=== PATIENT | male | born 1955 | race Caucasian/White ===

== ENCOUNTER 2019-08-06 13:20 | Outpatient (CLI) | payer OTHER ==
[2019-08-06 11:31] LABS: Estimated GFR-MDRD - POC Greater than 90
[~2019-08-06 13:20] MED LIST: Iopamidol-370 76% 500 ML 1 ML ONE
--- NOTE | 2019-08-06 16:26 | CT ---
CT OF CHEST AND ABDOMEN AND PELVIS PERFORMED WITH CONTRAST ENHANCEMENT: 08/06/19 HISTORY: Weight loss, acute low back pain. The lungs are clear of any infiltrative process. There is some reticular changes in the lung bases, p robably on the basis of scar. There are no pulmonary nodules identified or pleural effusions. There is no significant mediastinal or hilar lymphadenopathy seen. No significant axillary adenopathy . CT OF THE ABDOMEN PERFORMED WITH CONTRAST ENHANCEMENT: There is a nodular pleural based density lying along the right hemidiaphragm. The CT Hounsfield unit numbers are in the fluid density range. It measures approximately 1.5 cm in size, felt to be an incid ental finding given the CT Hounsfield unit numbers. The liver, spleen, pancreas, and gallbladder mary ons appear unremarkable. Right and left adrenal glands and right and left kidneys are normal in size. There is no significant periaortic or mesenteric lymphadenopathy. CT OF PELVIS PERFORMED WITH CONTRAST ENHANCEMENT: The bladder is distended. There is no significant pelvic lymphadenopathy or mass. Review of osseous structures show mild arthritic changes of the thoracic and lumbar spine. The right psoas muscle is slightly atrophic as compared to the left. There are arthritic changes of the hips. IMPRESSION: No evidence for any evidence for neoplasm. Incidental findings as noted above. POS: [facility]
== END 2019-08-06 13:21 | disposition home or self-care (01) ==
LOC: BICCT 13:20
PROVIDERS: ATTEND Neurological Surgery
DX: M54.5 Low back pain (principal); R63.4 Abnormal weight loss; M21.371 Foot drop, right foot
CPT/HCPCS: 71260; 74177; 82565; Q9967

== ENCOUNTER 2019-08-28 07:12 | Day surgery (SDC) | payer OTHER ==
[2019-08-25 11:50] VITALS: BMI 28.7
[2019-08-28 08:03] VITALS: BP 135/83; TEMP 97.2
[2019-08-28] MEDS ORDERED: FLU VACC QS2019-20(6MOS UP)/PF 60 MCG/0.5 ML SYRINGE IM ONE (09:00)
--- NOTE | 2019-08-28 10:16 | RAD ---
Fluoroscopically guided lumbar puncture: DATE: 08/28/2019 HISTORY: 64-year-old male with neuropathy, with foot drop, lower extremity weakness. 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 15 mL CSF requested by ordering physician. TECHNIQUE: Signed informed consent obtained. Patient placed prone on fluoroscopy table. Skin of lower back prepp ed and draped in usual sterile fashion. Right L2-3 paramedian approach. 25-gauge needle used to apply buffered lidocaine. 22-gauge needle advanced under brief, intermittent fluoroscopy into spinal canal. Upon return of clear CSF, a total of 15 mL of CSF was collected in 4 vials: 3 mL in first vial, and 4 mL in each of the remaining 3 vials. Spinal needle was removed. Patient tolerated procedu re well. No complications. Total fluoroscopy time: 0.9 minutes. Dose area product: 55.8 uGy*m^2. IMPRESSION: Successful lumbar puncture, with collection of 15 mL of clear cerebrospinal fluid, sent to laboratory for analysis.
[2019-08-28 10:19] LABS: Color Of CSF Supernatant COLORLESS (Colorless); Tube # 2; Unspun CSF Color COLORLESS (Colorless)
[2019-08-28 10:32] LABS: CSF, Glucose 215 mg/dl (40-70); CSF, Protein 125 mg/dL (15-40)
[2019-08-28 11:25] LABS: Clarity Clear (Clear); Tube # 4
[2019-08-28 14:50] LABS: Reference Lab Name LABCORP
[2019-08-28 14:51] LABS: Ref Lab Test Ordered PE
[2019-08-28 14:55] LABS: Ref Lab Test Ordered IGG INDEX /SYNT RATE; Reference Lab Name LABCORP
[2019-08-29 08:51] LABS: CSF Source CSF
== END 2019-08-28 10:30 | disposition home or self-care (01) ==
LOC: RAD 07:12
PROVIDERS: ATTEND Psychiatry & Neurology Neurology
PROC: 009U3ZX Drainage of Spinal Canal, Percutaneous Approach, Diagnostic (ICD-10-PCS; principal; 2019-08-28)
DX: G62.9 Polyneuropathy, unspecified (principal); M21.379 Foot drop, unspecified foot; I10 Essential (primary) hypertension; E11.9 Type 2 diabetes mellitus without complications; Z79.899 Other long term (current) drug therapy; Z88.0 Allergy status to penicillin
CPT/HCPCS: 62270; 82945; 83916; 84157; 89051